=== PATIENT | female | born 1955 | race Caucasian/White ===

== ENCOUNTER 2017-09-28 14:07 | Emergency (ER) | payer OTHER ==
[~2017-09-28 14:07] MED LIST: ALBU8I INH; GLUCTAB PO; LISI-360 PO; PROT40TA PO; TRAM50 PO
[2017-09-28 14:12] VITALS: BP 137/74; PULSE 75; RESP 18; TEMP 98.5; O2SAT 98
[2017-09-28] MEDS ORDERED: METF500T PO (14:31)
[2017-09-28] MEDS ORDERED: LISI10TA3 PO (14:31)
[2017-09-28] MEDS ORDERED: HUMIBIDDM PO (14:31)
[2017-09-28] MEDS ORDERED: VENTAER INH (14:31)
[2017-09-28] MEDS ORDERED: OMEP20TA93 PO (14:34)
--- NOTE | 2017-09-28 14:43 | PD ---
HPI Chief Complaint: Cold / Flu Symptoms Time Seen by Provider: 14:19 Travel History International Travel<30 days: No Contact w/Intl Traveler<30days: No Traveled to known affect area: No History of Present Illness HPI 61-year-old female with a history of diabetes, hypertension presents emergency department for evaluation of a cough that is been persistent for 4 months. Patient states she has had a white productive sputum. Denies hemoptysis. Patient says that she went to her primary care physician who ordered a chest x- ray and diagnosed her with bronchitis. She has received multiple regimen treatments on multiple occasions to include Phenergan with codeine, doxycycline , albuterol inhaler, Flonase nasal, and prednisone. Says that she was seen in May, and presents today with her who is here for another reason. Patient says that she has had trouble sleeping because the amount of coughing. Says that the coughing occasionally wake her up and is often associated after eating or drinking. Says that she saw an director of quantitative research where she had a scope and they said "nothing was wrong". This was 6 weeks ago. She denies having a metallic taste in her mouth. Denies leg swelling, chest pain, or shortness od breath. She denies history of blood clots , travel, surgeries. Says she has not been taking pantoprazole for her reflux. PFSH Past Medical History Asthma: Yes Cardiovascular Problems: Yes Cerebrovascular Accident: No Diabetes: Yes Diminished Hearing: No Hypertension: Yes Myocardial Infarction: No ?: Not Past Surgical History Pacemaker: No Social History Alcohol Use: No Tobacco Use: No Substance Use: No Allergies-Medications (Allergen,Severity, Reaction): Coded Allergies: No Known Allergies (Unverified Adverse Reaction, Unknown, 09/28/17) Reported Meds & Prescriptions Reported Meds & Active Scripts Active Losartan (Losartan Potassium) 25 Mg Tab 25 Mg PO DAILY 14 Days STOP lisinopril. Start this medication for your blood pressure. Omeprazole 20 Mg Tab 20 Mg PO DAILY 30 Days Reported Mucinex DM (Dextromethorphan-Guaifenesin) 30-600 Mg Tab 1 Tab PO BID PRN Metformin (Metformin HCl) 500 Mg Tab 500 Mg PO DAILY With a meal Lisinopril 10 Mg Tab 10 Mg PO DAILY Ventolin Hfa 18 GM Inh (Albuterol Sulfate) 90 Mcg/Act Aer 2 Puff INH Q4-6H PRN Review of Systems Except as stated in HPI: all other systems reviewed are Neg Physical Exam Narrative GENERAL: Well-nourished, well-developed patient. SKIN: Focused skin assessment warm/dry. HEAD: Normocephalic. EYES: No scleral icterus. No injection or drainage. NECK: Supple, trachea midline. No JVD or lymphadenopathy. THROAT: No pharyngeal injection, exudates, or tonsillar hypertrophy. Airway is patent. CARDIOVASCULAR: Regular rate and rhythm without murmurs, gallops, or rubs. RESPIRATORY: Breath sounds equal bilaterally. No accessory muscle use. No chest wall tenderness palpation. No wheezes, rales or rhonchi GASTROINTESTINAL: Abdomen soft, non-tender, nondistended. MUSCULOSKELETAL: No cyanosis, or edema. No pedal edema. Negative Homans sign BACK: Nontender without obvious deformity. No CVA tenderness. Data Data Last Documented VS Vital Signs Date Time Temp Pulse Resp B/P (MAP) Pulse Ox O2 Delivery O2 Flow Rate FiO2 09/28/17 14:12 98.5 75 18 137/74 (95) 98 Orders Orders Pantoprazole (Protonix) (09/28/17 14:45) Ed Discharge Order (09/28/17 14:49) MDM Medical Decision Making Medical Screen Exam Complete: Yes Emergency Medical Condition: Yes Differential Diagnosis Bakari induced cough, GERD, postnasal drip, allergic rhinitis Narrative Course 61-year-old female presents emergency department for evaluation of a cough that has been persistent for 4 months. She denies chest pain, shortness of breath. Patient has been on multiple medication regimen to include antibiotics, steroids , inhalers, nasal spray, cough medication, multiple [id number]-[id number] medications. Patient states that she was evaluated by ear nose and throat who performed a scope. Says she has had multiple chest x-rays that have been clear. No concerning symptoms such as hemoptysis, shortness of breath, chest pain. Vital signs are stable. Physical exam findings essentially unremarkable. Patient has used multiple [id number] medications and prescribed medications for her cough. I believe that patient may have GERD versus BAKARI induced cough. Will stop lisinopril, start losartan. Start omeprazole daily. First dose of pantoprazole here in the emergency department. She is advised to follow-up with her primary care physician within 1 week. She is advised to return to the emergency room for worsening or persistent symptoms. Diagnosis Primary Impression: Cough Additional Impression: GERD (gastroesophageal reflux disease) Qualified Codes: K21.9 - Gastro-esophageal reflux disease without esophagitis Referrals: Ear / Nose / Throat Specialist Primary Care Physician Additional Instructions: STOP lisinopril. START Losartan for your blood pressure. START Omeprazole for your reflux as this may be a cause fo your symptoms. Follow-up with your primary care physician within 1 week. You may use a drop of honey and lemon in a cup of warm water to soothe your cough. (If you are greater than 1 year old ) Ensure good hydration and a nutritious diet. Note that viral infection symptoms may last for several weeks if you have a viral illness. Return to the ED for worsening or persistent symptoms. Scripts Losartan (Losartan) 25 Mg Tab 25 MG PO DAILY for Blood Pressure Management for 14 Days, #14 TAB 0 Refills STOP lisinopril. Start this medication for your blood pressure. Prov: Jonathan Winston MD 09/28/17 Omeprazole (Omeprazole) 20 Mg Tab 20 MG PO DAILY for 30 Days, #30 TAB 0 Refills Prov: Jonathan Winston MD 09/28/17 Disposition: 01 DISCHARGE HOME Condition: Stable Cailin Monsalve September 28, 2017 14:43
[2017-09-28] MEDS ORDERED: LOSA25TA PO (14:44)
[2017-09-28] MEDS ORDERED: PANTOPRAZOLE SOD 20 MG DELAYED RELEASE TAB PO ONE (14:45)
== END 2017-09-28 14:55 | disposition home or self-care (01) ==
LOC: PHED 14:07
DX: R05 Cough (principal); K21.9 Gastro-esophageal reflux disease without esophagitis; E11.9 Type 2 diabetes mellitus without complications; I10 Essential (primary) hypertension; J45.909 Unspecified asthma, uncomplicated; Z79.51 Long term (current) use of inhaled steroids; Z79.899 Other long term (current) drug therapy
CPT/HCPCS: 99283